=== PATIENT | female | born 1965 | race Caucasian/White ===

== ENCOUNTER 2022-11-13 22:22 | Emergency (ER) | payer MEDICAID ==
[~2022-11-13] VITALS: Ht 167.6 cm; Wt 100.0 kg
[~2022-11-13 22:22] MED LIST: ALBU2SYP10; DICY10CA55; LEVO125T59; OME40GT
[2022-11-13 23:58] LABS: Hematocrit 35.2 % (36.0-46.0); Hemoglobin 12.1 g/dL (12.2-16.2); Mean Corpuscular Hemoglobin 30.5 pg (28.0-32.0); Mean Corpuscular Hgb Conc. 34.4 g/dL (32.0-36.0); Mean Corpuscular Volume 88.7 fL (80.0-100.0); Red Blood Cells 3.97 10^6/uL (4.0-5.20); Red Cell Distribution Width 14.9 % (11.8-14.3); White Blood Cell 9.6 10^3/uL (4.4-10.8)
[2022-11-14 00:13] LABS: Albumin 3.1 g/dL (3.4-5.0); BUN/Creatinine Ratio 9.6; Calcium 9.2 mg/dL (8.5-10.1); Potassium 3.7 mmol/L (3.5-5.1)
[2022-11-14 00:16] LABS: Bilirubin, Total 0.3 mg/dL (0.2-1.0); Total Protein 7.6 g/dL (6.4-8.2)
[2022-11-14 00:49] LABS: Basophils % (manual) 0 (0.0-2.0); Blast Cells 0; Metamyelocytes % 0; Myelocytes % 0; Promyelocytes % 0; Reactive Lymphocytes 0
[2022-11-14 00:52] LABS: INR 1.05 (0.9-1.15); Partial Thromboplastin Time 33.1 sec (24.6-33.4)
[2022-11-14 01:37] LABS: Band Neutrophils % (manual) 11; Eosinophils % (manual) 1 (0-7); Lymphocytes % (manual) 19 (10.0-50.0); Monocytes % (manual) 6 (0-12)
[2022-11-14] MEDS ORDERED: HYDROmorphone HCL 2 MG/ML VL/or syr IV ONE (02:00)
[2022-11-14] MEDS ORDERED: methylPREDNISolone SOD SUCC 125 MG/2 ML VL IV ONE (02:30)
[2022-11-14] MEDS ORDERED: IPRATROPIUM BROM 0.5 MG/2.5ML INH SOL NEB ONE (02:30)
[2022-11-14] MEDS ORDERED: ALBUTEROL SULF 2.5 MG/0.5ML(0.5%) NEB SOLN NEB ONE (02:30)
[2022-11-14] MEDS ORDERED: cefTRIAXone SOD 1,000 MG VL IV ONE (03:15)
[2022-11-14] MEDS ORDERED: AZITHROMYCIN 250 MG TAB PO ONE (03:15)
[2022-11-14] MEDS ORDERED: cefTRIAXone 1GM/50ML D5W 50 ML IV ONE (04:00)
[2022-11-14] MEDS ORDERED: IOHEXOL 350 MG/ML 100ML IJ ONE (04:20)
[2022-11-14 10:29] VITALS: BP 127/68
== END 2022-11-14 11:48 | disposition left against medical advice (07) ==
LOC: ER 22:25
DX: D00.08 Carcinoma in situ of pharynx (principal); I87.1 Compression of vein; M25.48 Effusion, other site; J44.9 Chronic obstructive pulmonary disease, unspecified; F17.210 Nicotine dependence, cigarettes, uncomplicated; Z20.822 Contact with and (suspected) exposure to COVID-19
CPT/HCPCS: 36415; 71045; 71260; 80053; 83880; 84484; 85007; 85027; 85610; 85730; 87426; 93005; 94640; 96365; 96375; 99285; J0696; J1170; J2930; J7644; Q9967